=== PATIENT | female | born 1990 | race Caucasian/White ===

== ENCOUNTER 2023-12-05 05:32 | Inpatient (IN) | payer OTHER, SELFPAY ==
[2023-12-05 05:43] VITALS: BMI 34.6
[2023-12-05 05:52] VITALS: BP 114/65
[2023-12-05] MEDS: LR 1000 IV (06:05)
[2023-12-05 06:14] LABS: Hematocrit 32.6 % (37.0-47.0); Hemoglobin 11.3 g/dL (12.0-16.0); Mean Corp Hgb Conc. 34.7 g/dL (33.0-37.0); Mean Corpuscular Hgb 30.3 pg (27.0-31.0); Mean Corpuscular Volume 87.4 fL (81.0-99.0); Mean Platelet Volume 10.2 fL (7.4-10.4); Platelet Count 270 10^3/uL (130-400); Red Blood Cell Count 3.73 10^6/uL (4.20-5.40); Red Cell Dist. Width 13.4 % (11.5-14.5); White Blood Cell Count 10.9 10^3/uL (4.8-10.8)
[2023-12-05] MEDS: TYLENOL 1000 MG PO (06:49)
[2023-12-05] MEDS: BICITRA 30 ML PO (06:50)
[2023-12-05] MEDS: ANCEF 10 IV (06:50)
[2023-12-05] MEDS: TORADOL 15 MG IV ×2 (13:52→19:43)
[2023-12-05] MEDS: PITOCIN 30 UNITS/NSS 500 ML IV (14:42)
[2023-12-05] MEDS: REGLAN 10 MG IV (15:05)
[2023-12-05] MEDS: BENADRYL 25 MG IV (20:02)
[2023-12-06] MEDS: TORADOL 15 MG IV ×2 (01:56→07:57)
[2023-12-06 06:08] LABS: Hematocrit 26.7 % (37.0-47.0); Hemoglobin 9.1 g/dL (12.0-16.0); Mean Corp Hgb Conc. 34.1 g/dL (33.0-37.0); Mean Corpuscular Hgb 30.5 pg (27.0-31.0); Mean Corpuscular Volume 89.6 fL (81.0-99.0); Mean Platelet Volume 10.4 fL (7.4-10.4); Platelet Count 260 10^3/uL (130-400); Red Blood Cell Count 2.98 10^6/uL (4.20-5.40); Red Cell Dist. Width 13.6 % (11.5-14.5); White Blood Cell Count 12.7 10^3/uL (4.8-10.8)
[2023-12-06] MEDS: SENOKOT-S 1 TABLET PO (07:57)
--- NOTE | 2023-12-06 08:53 | W.PN.ANS.POP ---
Anesthesia Post Operative
- Anesthesia Post Op Note
Vital Signs Stable-See Nursing Note: Yes
Airway Patent: Yes
Adequate Pain Control: Yes
Change in Mental Status: No
Current Postoperative Nausea & Vomiting: No
Anesthesia Complications: No
General Anesthetic Recall: No
Unplanned Admission: No
Post Op Hydration Adequate: Yes
- -
Pt awake and alert, OOB to chair no anesthesia r/t c/o at time of post op visit.
[2023-12-06 14:49] LABS: Syphilis/T. pallidum Ab Reflex Negative (Negative)
[2023-12-06] MEDS: MOTRIN 600 MG PO ×2 (15:04→21:38)
[2023-12-06] MEDS: TYLENOL 650 MG PO ×2 (15:04→21:37)
[2023-12-06] MEDS: FEOSOL 325 MG PO (15:06)
[2023-12-07] MEDS: TYLENOL 650 MG PO (03:41)
[2023-12-07] MEDS: MOTRIN 600 MG PO ×2 (03:41→09:06)
[2023-12-07] MEDS: SENOKOT-S 1 TABLET PO (09:05)
[2023-12-07] MEDS: FEOSOL 325 MG PO (09:08)
[2023-12-07] MEDS: PERCOCET 5/325 1 TABLET PO (09:11)
--- NOTE | 2023-12-15 09:10 | W.DS.TRANS ---
DC Summary - Relay Checker
-
Discharge Instructions:
Discharge Diagnosis/Procedures delivered
Diet Regular
Activity No strenuous activity
Driving Restrictions As prior to admission
Bathing Restrictions OK to Shower
Instructions:
Stand-Alone Forms: LDRP Delivery
Changes to Home Medications: No
Discharge Medications:
DC Medications w/original date entered in [facility]
prenat.vits,cedric,sib-lozf-[id number] 1 tab PO DAILY Supplement 12/05/23
valacyclovir 500 mg tablet (Valtrex) 500 mg PO DAILY Infection 12/05/23
acetaminophen 325 mg tablet 650 mg PO Q4HPRN PRN mild pain #0 tabs 12/07/23
ferrous sulfate 325 mg (65 mg iron) tablet (FeroSul) 325 mg PO DAILY #0 tabs 12/07/23
ibuprofen 600 mg tablet 600 mg PO Q6HPRN PRN cramps #30 tabs 12/07/23
oxycodone 5 mg capsule 5 mg PO Q4H PRN severe pain #7 caps 12/07/23
sennosides 8.6 mg-docusate sodium 50 mg tablet (Stool Softener-Stimulant Laxative) 1 tab PO DAILYPRN PRN constipation #0 tabs 12/07/23
Home Medication Changes
Pending Results: No
Total time spent discharging patient (in min): 30
== END 2023-12-07 14:24 | disposition home or self-care (01) | DRG 787 ==
LOC: LDRP 05:32
PROVIDERS: ADMITTING PHYSICIAN Obstetrics & Gynecology
PROC: 10D00Z1 Extraction of Products of Conception, Low, Open Approach (ICD-10-PCS; 2023-12-05)
DX: O34.211 Maternal care for low transverse scar from previous cesarean delivery (principal); O98.32 Other infections with a predominantly sexual mode of transmission complicating childbirth; O99.834 Other infection carrier state complicating childbirth; Z3A.39 39 weeks gestation of pregnancy; Z37.0 Single live birth; A60.09 Herpesviral infection of other urogenital tract; N73.6 Female pelvic peritoneal adhesions (postinfective); E73.9 Lactose intolerance, unspecified; O99.214 Obesity complicating childbirth; O90.81 Anemia of the puerperium; D64.9 Anemia, unspecified; Z82.49 Family history of ischemic heart disease and other diseases of the circulatory system
CPT/HCPCS: 85027; 86780; 86850; 86900; 86901

== ENCOUNTER → 2025-06-14 09:15 | Outpatient (REF) | payer OTHER, SELFPAY | LOC: WDC 09:15 | PROVIDERS: ATTENDING PHYSICIAN Obstetrics & Gynecology; FAMILY PHYSICIAN Nurse Practitioner | DX: N63.11 Unspecified lump in the right breast, upper outer quadrant (principal) | CPT/HCPCS: 76642; 77062; 77066 ==